=== PATIENT | male | born 1995 | race Caucasian/White ===

== ENCOUNTER 2016-12-04 15:38 | Emergency (ER) | payer BC, OTHER ==
[~2016-12-04] VITALS: Ht 172.7 cm; Wt 93.7 kg
[~2016-12-04 15:38] MED LIST: ASPI325T45 PO; CHOL100040 PO
[2016-12-04 15:45] VITALS: TEMP 36.8; Ht 172.7 cm; Wt 93.7 kg
[2016-12-04] MEDS ORDERED: SODIUM CHLORIDE 0.9% 1000ML 1,000 ML IV STA (15:52)
[2016-12-04] MEDS ORDERED: ONDANSETRON INJ 2 MG/ML 2 ML VIAL IV STA (15:52)
[2016-12-04] MEDS ORDERED: OPTIRAY 320 IV PRN (16:00)
[2016-12-04 16:28] LABS: BASO % 0.8 %; BASO ABS # 0.06 K/uL (0-0.2); COMPLETE YES; EOS % 3.6 %; HEMATOCRIT 48.3 % (42-52); LYMPH % 29.2 %; LYMPH ABS # 2.12 K/uL (1.2-3.4); MEAN CELL VOLUME 84.3 fL (80-100); MEAN CORPUSCULAR HEMOGLOBIN 30.2 pg (25-34); MEAN CORPUSCULAR HGB CONC 35.8 g/dl (32-36); MEAN PLATELET VOLUME 10.2 fL (7.4-10.4); NEUT % 58.4 %; PLATELET COUNT 235 K/uL (130-400); RED BLOOD COUNT 5.73 M/uL (4.7-6.1); WHITE BLOOD COUNT 7.25 K/uL (4.8-10.8)
[2016-12-04 16:30] LABS: URINE APPEARANCE CLEAR (CLEAR); URINE BILIRUBIN NEG (NEG); URINE COLOR YELLOW; URINE EPITHELIAL CELL AUTO 0-5 /lpf (0-5); URINE NITRITE NEG (NEG); UROBILINOGEN NEG (NEG); ZZUR CULT IF INDIC CLEAN CATCH NO
[2016-12-04 16:32] LABS: MANUAL MICROSCOPIC REQUIRED? NO; REVIEW REQ? NO
[2016-12-04] MEDS ORDERED: DICL-201 PO (16:32)
[2016-12-04] MEDS ORDERED: METH-307 PO (16:32)
[2016-12-04] MEDS ORDERED: OMEP20TA14 PO (16:32)
[2016-12-04 16:47] LABS: BUN/CREATININE RATIO 8.7 (10-20); CALCIUM 9.8 mg/dl (8.5-10.1); CREATININE 1.3 mg/dl (0.60-1.40); POTASSIUM 3.5 mmol/L (3.5-5.1)
--- NOTE | 2016-12-04 17:39 | DIAGNOSTIC IMAGING REPORT ---
CT OF THE ABDOMEN AND PELVIS WITH CONTRAST CLINICAL HISTORY: Right lower quadrant abdominal pain. COMPARISON STUDY: None. TECHNIQUE: Following IV administration of 94 mL of Optiray-320, axial images of the abdomen and pelvis were obtained from the lung bases to the proximal femurs. Images were reviewed in the axial, sagittal, and coronal planes. IV contrast was administered without complication. CT DOSE: 557.45 mGy.cm FINDINGS: The lung bases are clear. There is no pneumatosis, free air or portal venous gas. The liver, spleen, adrenal glands, kidneys and pancreas are normal. There is no biliary or pancreatic ductal dilatation. No hydronephrosis is present. The caliber and wall thickness of small and large bowel are normal. The appendix is normal. There is mild mesenteric infiltration. There is slight prominence of the vasculature of the small bowel which is likely within normal limits. There is no ascites or lymphadenopathy. Skeletal structures are unremarkable. IMPRESSION: 1. Normal appendix. 2. Mild mesenteric infiltration, a nonspecific finding of questionable significance. 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 No associated lymphadenopathy. Electronically signed by: Rod Benson M.D. 12/04/2016 5:37 PM Dictated Date/Time: 12/04/2016 5:33 PM
[2016-12-04 17:46] VITALS: BP 136/77; PULSE 90; O2SAT 100
--- NOTE | 2016-12-04 18:04 | EMERGENCY ROOM VISIT NOTE ---
History Report prepared by Jenna: Lin Anthony Under the Supervision of: Dr. Dane Pierce D.O. First contact with patient: 15:48 Chief Complaint: ABDOMINAL PAIN Stated Complaint: LOWER R SIDE ABD PAIN History of Present Illness The patient is a 21 year old male who presents to the Emergency Room with complaints of worsening right lower quadrant abdominal pain that began 2 days ago. Initially, he thought the pain was a stomach ache, but it has since localized and worsened in severity. He also complains of one episode of diarrhea. He has been eating and drinking normally. Denies nausea, vomiting, testicular symptoms, or other complaints. Source of History: patient Onset: 2 days ago Position: abdomen (RLQ) Timing: worsening Associated Symptoms: + diarrhea, No nausea, No vomiting Review of Systems See HPI for pertinent positives & negatives. A total of 10 systems reviewed and were otherwise negative. Past Medical & Surgical Medical Problems: (1) Cat bite (2) Need for prophylactic vaccination against rabies (3) Need for prophylactic vaccination against rabies (4) Pasteurella cellulitis due to cat bite Family History Hypertension Social History Smoking Status: Never Smoker Alcohol Use: occasionally Drug Use: none Marital Status: single Housing Status: lives with roommate Occupation Status: [employer] student Current/Historical Medications Scheduled PRN Diclofenac (Voltaren), 75 MG PO BID PRN for Pain Methocarbamol (Robaxin), 750 MG PO TID PRN for RELAX MUSCLE Omeprazole Magnesium (Prilosec Otc), 20 MG PO DAILY PRN for Pain Allergies Coded Allergies: No Known Allergies (Unverified , 08/13/16) Physical Exam Vital Signs Date Time Temp Pulse Resp B/P Pulse Ox O2 Delivery O2 Flow Rate FiO2 12/04/16 17:46 90 16 136/77 100 Room Air 12/04/16 16:54 86 18 110/60 99 Room Air 12/04/16 15:45 36.8 133 20 143/78 98 Room Air Physical Exam CONSTITUTIONAL/VITAL SIGNS: Reviewed / noted above. GENERAL: Non-toxic in appearance. INTEGUMENTARY: Warm, dry, and [place]. HEAD: Normocephalic. EYES: without scleral icterus or trauma. ENT/OROPHARYNX: clear and moist. LYMPHADENOPATHY/NECK: Is supple without lymphadenopathy or meningismus. RESPIRATORY: Lungs clear and equal. CARDIOVASCULAR: Regular rate and rhythm. GI/ABDOMEN: Soft, mild tenderness right lower quadrant. No organomegaly or pulsatile mass. No rebound or guarding. Normal bowel sounds. EXTREMITIES: Warm and well perfused. BACK: No CVA tenderness. NEUROLOGICAL: Intact without focal deficits. PSYCHIATRIC: normal affect. MUSCULOSKELETAL: Normally developed with good muscle tone. Medical Decision & Procedures ER Provider Diagnostic Interpretation: CT results as stated below per my review and radiologist interpretation: CT OF THE ABDOMEN AND PELVIS WITH CONTRAST CLINICAL HISTORY: Right lower quadrant abdominal pain. COMPARISON STUDY: None. TECHNIQUE: Following IV administration of 94 mL of Optiray-320, axial images of the abdomen and pelvis were obtained from the lung bases to the proximal femurs. Images were reviewed in the axial, sagittal, and coronal planes. IV contrast was administered without complication. CT DOSE: 557.45 mGy.cm FINDINGS: The lung bases are clear. There is no pneumatosis, free air or portal venous gas. The liver, spleen, adrenal glands, kidneys and pancreas are normal. There is no biliary or pancreatic ductal dilatation. No hydronephrosis is present. The caliber and wall thickness of small and large bowel are normal. The appendix is normal. There is mild mesenteric infiltration. There is slight prominence of the vasculature of the small bowel which is likely within normal limits. There is no ascites or lymphadenopathy. Skeletal structures are unremarkable. IMPRESSION: 1. Normal appendix. 2. Mild mesenteric infiltration, a nonspecific finding of questionable significance. 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 No associated lymphadenopathy. Electronically signed by: Rod Benson M.D. 12/04/2016 5:37 PM Dictated Date/Time: 12/04/2016 5:33 PM Laboratory Results 12/04/16 15:58 Red Blood Count 5.73, Mean Corpuscular Volume 84.3, Mean Corpuscular Hemoglobin 30.2, Mean Corpuscular Hemoglobin Concent 35.8, Mean Platelet Volume 10.2, Neutrophils (%) (Auto) 58.4, Lymphocytes (%) (Auto) 29.2, Monocytes (%) (Auto) 8.0, Eosinophils (%) (Auto) 3.6, Basophils (%) (Auto) 0.8, Neutrophils # (Auto) 4.23, Lymphocytes # (Auto) 2.12, Monocytes # (Auto) 0.58, Eosinophils # (Auto) 0.26, Basophils # (Auto) 0.06 12/04/16 15:58 Test 12/04/16 15:58 12/04/16 16:01 White Blood Count 7.25 K/uL (4.8-10.8) Red Blood Count 5.73 M/uL (4.7-6.1) Hemoglobin 17.3 g/dL (14.0-18.0) Hematocrit 48.3 % (42-52) Mean Corpuscular Volume 84.3 fL (80-100) Mean Corpuscular Hemoglobin 30.2 pg (25-34) Mean Corpuscular Hemoglobin Concent 35.8 g/dl (32-36) Platelet Count 235 K/uL (130-400) Mean Platelet Volume 10.2 fL (7.4-10.4) Neutrophils (%) (Auto) 58.4 % Lymphocytes (%) (Auto) 29.2 % Monocytes (%) (Auto) 8.0 % Eosinophils (%) (Auto) 3.6 % Basophils (%) (Auto) 0.8 % Neutrophils # (Auto) 4.23 K/uL (1.4-6.5) Lymphocytes # (Auto) 2.12 K/uL (1.2-3.4) Monocytes # (Auto) 0.58 K/uL (0.11-0.59) Eosinophils # (Auto) 0.26 K/uL (0-0.5) Basophils # (Auto) 0.06 K/uL (0-0.2) RDW Standard Deviation 35.1 fL (36.4-46.3) RDW Coefficient of Variation 11.5 % (11.5-14.5) Immature Granulocyte % (Auto) 0.0 % Immature Granulocyte # (Auto) 0.00 K/uL (0.00-0.02) Anion Gap 13.0 mmol/L (3-11) Est Creatinine Clear Calc Drug Dose 99.0 ml/min Estimated GFR () 89.8 Estimated GFR (Non- 77.5 BUN/Creatinine Ratio 8.7 (10-20) Calcium Level 9.8 mg/dl (8.5-10.1) Total Bilirubin 0.7 mg/dl (0.2-1) Direct Bilirubin 0.1 mg/dl (0-0.2) Aspartate Amino Transf (AST/SGOT) 21 U/L (15-37) Alanine Aminotransferase (ALT/SGPT) 35 U/L (12-78) Alkaline Phosphatase 82 U/L (45-117) Total Protein 8.3 gm/dl (6.4-8.2) Albumin 4.7 gm/dl (3.4-5.0) Lipase 82 U/L (73-393) Urine Color YELLOW Urine Appearance CLEAR (CLEAR) Urine pH 7.0 (4.5-7.5) Urine Specific Olga 1.020 (1.000-1.030) Urine Protein NEG (NEG) Urine Glucose (UA) NEG (NEG) Urine Ketones NEG (NEG) Urine Occult Blood NEG (NEG) Urine Nitrite NEG (NEG) Urine Bilirubin NEG (NEG) Urine Urobilinogen NEG (NEG) Urine Leukocyte Esterase NEG (NEG) Urine WBC (Auto) 0 /hpf (0-5) Urine RBC (Auto) 0-4 /hpf (0-4) Urine Hyaline Casts (Auto) 0 /lpf (0-5) Urine Epithelial Cells (Auto) 0-5 /lpf (0-5) Urine Bacteria (Auto) NEG (NEG) Laboratory results as stated above per my review. Medications Administered Medications (Trade) Dose Ordered Sig/Jennifer Route Start Time Stop Time Status Last Admin Dose Admin Sodium Chloride (Nss 1000ml) 1,000 ml @ 999 mls/hr Q1H1M STAT IV 12/04/16 15:52 12/04/16 16:54 DC 12/04/16 16:01 999 MLS/HR Ondansetron HCl (Zofran Inj) 4 mg NOW STAT IV 12/04/16 15:52 12/04/16 15:54 DC 12/04/16 16:01 4 MG ED Course 1548: The patient was evaluated in room C7. A complete history and physical examination was performed. 1552: Ordered Zofran Inj 4 mg IV, NSS 1000 ml @ 999 mls/hr IV. 1800: On reevaluation, the patient is resting comfortably. I discussed the results and findings with the patient. He verbalized agreement of the treatment plan. The patient was discharged home. Medical Decision Differential considered: pancreatitis, hepatitis, or acute cholecystitis, AAA, UTI, pyelonephritis, kidney stones, appendicitis, diverticulitis, shingles, bowel obstruction mesenteric ischemia, intussusception,hernia, testicular torsion. This is a 21-year-old male who presents to the ED with a chief complaint of right lower quadrant abdominal pain. The patient states that he has had the symptoms for about 2 days. It initially was generalized and then localized the right lower quadrant. His vital signs are stable. Physical exam reveals only mild tenderness in the right lower quadrant. No other abnormal findings. His CBC is normal. Complete metabolic panel is normal. Lipase is negative. Urine did not show infection. CT scan of the abdomen and pelvis did not show acute appendicitis. There is some mild mesenteric inflammatory changes. The patient was told the results of the tests. He is felt to be stable for discharge. He was treated with IV fluids and IV Zofran. Impression Primary Impression: RLQ abdominal pain Scribe Attestation The scribe's documentation has been prepared under my direction and personally reviewed by me in its entirety. I confirm that the note above accurately reflects all work, treatment, procedures, and medical decision making performed by me. Departure Information Dispostion Home / Self-Care Referrals BLAKE QURSEHI D.O. (PCP) Patient Instructions My [facility] Additional Instructions Follow-up with your doctor for further care and evaluation in 3-7 days if symptoms persist. Return to the emergency department for worsening or new symptoms or any concerns. You have been examined and treated today on an emergency basis only. This is not a substitute for, or an effort to provide, complete comprehensive medical care. It is impossible to recognize and treat all injuries or illnesses in a single emergency department visit. It is therefore important that you follow up closely with your doctor. Call as soon as possible for an appointment.
[2017-07-12] MEDS ORDERED: OMEP40CA41 PO (07:48)
[2017-07-12] MEDS ORDERED: VNTHFA/IN INH (07:48)
[2017-07-25] MEDS ORDERED: OXYC-57 PO (14:07)
== END 2016-12-04 18:14 | disposition home or self-care (01) ==
LOC: C.EDB 15:40 → C.EDC 18:14
DX: R10.31 Right lower quadrant pain (principal); Z86.19 Personal history of other infectious and parasitic diseases; Z79.899 Other long term (current) drug therapy; Z82.49 Family history of ischemic heart disease and other diseases of the circulatory system

== ENCOUNTER → 2017-07-25 | Day surgery (SDC) | payer OTHER ==
[2017-07-12 07:32] VITALS: BMI 29.0
[~2017-07-25] VITALS: Ht 175.3 cm; Wt 90.9 kg
[~2017-07-25] MED LIST changes: -ASPI325T45 PO; +ATROPINE SULFATE 0.1 MG/ML 5ML SYR IV PRN; +BUPIVACAINE 0.5 % 5 MG/1 ML MPF 30ML VIAL ONE; +CEFAZOLIN 2000 MG/60 ML D5W IV SCH; -CHOL100040 PO; +DEXAMETHASONE SOD INJ 4 MG/ML VIAL ONE; +EpHEDrine SULFATE 50MG/5ML SYR ONE; +EpHEDrine SULFATE INJ 50 MG/ML AMP IV PRN; +FENTANYL CITRATE INJ 50 MCG/1 ML 2 ML VIAL ONE; +FLUMAZENIL 0.1 MG/1 ML 10 ML VIAL IV PRN; +GLYCOPYRROLATE INJ 0.2 MG/ML VIAL ONE; +HYDROmorphone INJ 2 MG/ML SYR/VIAL IV PRN; +LABETALOL HCL IV 5 MG/ML 20ML IV PRN; +LACTATED RINGER'S 1000ML 1,000 ML IV SCH; +LIDOCAINE HCL 1% 20 ML VIAL ONE; +MEPERIDINE HCL 25 MG/ML CARP IV PRN; +MIDAZOLAM HCL 1 MG/ML 2ML VIAL ONE; +NALOXONE HCL 0.4 MG/1 ML VIAL/CARP IV PRN; +NEOSTIGMINE METHYLSULFATE 5 MG/5 ML SYR ONE; +OMEP40CA41 PO; +ONDANSETRON INJ 2 MG/ML 2 ML VIAL IV PRN; +ONDANSETRON INJ 2 MG/ML 2 ML VIAL ONE; +OXYC-57 PO; +PHENYLEPHRINE 100MCG/ML 5ML SYR IV PRN; +PROPOFOL IV EMULSION 10 MG/ML 20 ML VIAL IV ONE; +ROCURONIUM BROMIDE 10 MG/ML 5 ML VIAL IV ONE; +VNTHFA/IN INH
[2017-07-25 10:29] VITALS: BP 135/79; PULSE 76; TEMP 37; O2SAT 98; Ht 175.3 cm; Wt 90.9 kg
[2017-07-25] MEDS: LACTATED RINGER'S 1000ML 1,000 ML IV SCH ×2 (11:01→11:02)
--- NOTE | 2017-07-25 11:59 | History & Physical Bridge Note ---
H&P Re-Evaluation Bridge Note: I have examined the patient, reviewed the History & Physical and in the interval since the performance of the History & Physical I have noted the following changes of clinical significance: No changes noted
--- NOTE | 2017-07-25 14:06 | [facility] Operative Report ---
Operative Report Operative Date Jul 25, 2017. Pre-Operative Diagnosis Biliary Dyskinesia & Bilary Colic Post-Operative Diagnosis Biliary Dyskinesia & Bilary Colic Procedure(s) Performed Laparoscopic Cholecystectomy Surgeon Harleen Francisco MD Ballet Dancer Surgeon(s) MARLEY Osuna Estimated Blood Loss 5mL Findings Normal appearing gallbladder and liver Fluids 1200mL Specimens A: gallbladder & contents to pathology Drains None Anesthesia GETA, 40ml of Local anesthetic (20ml 0.5% Marcaine + 20ml 1% Lidocaine mix) Complication(s) None Disposition Recovery Room / PACU Indications Shelton Hamlin is a 22 year old man with biliary dyskinesia and biliary colic. Indications, risks, benefits and potential complications of laparoscopic, possible open cholecystectomy were discussed at length with the patient pre operatively. All questions answered to apparent satisfaction. Patient elected to proceed with surgery and freely signed the consent form. Description of Procedure Patient was brought to the operating room and identified as Shelton Hamlin, 89. He was placed on the operating table in supine position. Anesthesia was induced and the patient was intubated without difficulty. The abdomen was clipped, prepped, and draped in the usual sterile fashion. A time out was held, verifying correct patient, procedure, site, equipment available, pre operative antibiotics, allergies, and personnel. After injection of local anesthetic, an incision was made at the umbilicus and carried down through subcutaneous tissues. Fascia was identified and two Walter clamps were placed for upward traction. Fascia was incised, and peritoneum was located. Two hemostats were placed for upward traction, and the peritoneum was carefully incised using Metzenbaum scissors, taking care not to injure any underlying structures. A 12mm balloon port was inserted, and insufflation was established. A 10mm endoscope was inserted, and the abdomen explored; the liver and gallbladder were both observed to appear normal. Next, a 5mm port was placed in the sub-xiphoid location under direct vision. Two more 5mm ports were placed in the left abdomen, approximately 4cm below the costal margin. Patient was positioned in reverse Trendelenburg with left side down to open the gallbladder fossa. The dome of the gallbladder was grasped and retracted cranially. The lateral edge of the gallbladder was grasped and retracted laterally. Omental adhesions were gently taken down using [place] graspers. The cystic duct was then dissected out using [place] graspers. The cystic artery was found medially to the cystic duct; this was also carefully dissected out until the view of safety was clearly visible. The cystic artery and duct were the only structures observed to be leading into the gallbladder, with liver visible between and behind the two structures. The cystic duct was clipped with 5mm surgical clips and cut. The cystic artery was then clipped and cut. The gallbladder was then dissected off the hilar plate using electrocautery. Once completely liberated from the gallbladder fossa, the 10mm endoscope was switched for a 5mm endoscope, and a 10mm Endocatch bag was placed through the umbilical port. The gallbladder was placed in the Endocatch bag, and removed from the abdomen to be passed off the field to be taken to pathology. The gallbladder fossa was inspected. hemostasis was achieved with electrocautery. Once verified to be hemostatic, the gallbladder fossa was irrigated with sterile saline, and evacuated of all excess fluid. The 5mm ports were removed under direct vision. Sponge and instrument counts were verified to be correct x 2 by the nurse in charge. Fascia was closed at the umbilicus using 0 Vicryl in interrupted fashion. Skin was closed with Monocryl, and Dermabond applied. Patient was then awakened from anesthesia, extubated without difficulty, and was taken to PACU, having suffered no untoward events. I attest to the content of the Intraoperative Record and any orders documented therein. Any exceptions are noted below.
--- NOTE | 2017-07-25 14:15 | Discharge Instructions ---
Discharge Instructions Date of Service Jul 25, 2017. Visit Reason for Visit: Biliary Dyskinesia Discharge Discharge Diagnosis / Problem: Biliary dyskinesia, biliary colic Discharge Goals Goal(s): Decrease discomfort, Improve function Activity Recommendations Activity Limitations: as noted below Lifting Limitations: no more than 10 pounds Exercise/Sports Limitations: rest today, until after follow-up appointment May Resume Sexual Activity: when tolerated Shower/Bathe: no limitations Anesthesia . Post Anesthesia Instructions: If you have had General Anesthesia or IV Sedation: * Do not drive today. * Resume driving when surgeon permits. * Do not make important decisions or sign legal documents today. * Call surgeon for: 1. Temperature elevations greater than 101 degrees F. 2. Uncontrollable pain. 3. Excessive bleeding. 4. Persistent nausea and vomiting. 5. Medication intolerance (nausea, vomiting or rash). * For nausea and vomiting use only clear liquids such as: tea, soda, bouillon until nausea subsides, then gradually increase diet as tolerated. * If you have any concerns or questions, call your surgeon's office. If physician is unavailable and it is an emergency, call 911 or go to the nearest emergency room. . Instructions / Follow-Up Instructions / Follow-Up -You have Dermabond (surgical glue) over your incisions. You may shower, just wash gently over the incisions with warm / soapy water. Do not scrub. Do not soak, as in a bathtub or swimming pool. The surgical glue will fall off on its own over time. You have sutures in place which will dissolve over time - they will not need to be removed. -Please follow up with Dr. Francisco in clinic in 1 to 2 weeks following operation. You may call [phone] to make this appointment or if you have any questions. -Do not lift anything greater than 10 lbs until you are evaluated at your outpatient appointment. -You may take Percocet, 1 to 2 tabs every 4 to 6 hours as needed for pain. Alternatively, you may take Tylenol or Ibuprofen for pain - use as directed. Do not take Tylenol at the same time as the Percocet (Percocet contains Tylenol) . Do not drive or operate heavy machinery while taking the Percocet. Do not drive until you are no longer taking Percocet and are completely pain free. -You have no diet restrictions following your surgery. You may feel nauseated or have no appetite on the day of surgery, so start slowly with liquids only, advance as tolerated. -Call the clinic office with any questions or concerns. Diet Recommendations Recommended Home Diet: no limitations, resume previous diet Procedures Procedures Performed: Laparoscopic Cholecystectomy Pending Studies Studies pending at discharge: yes List of pending studies: Gallbladder pathology - will discuss results at follow up appointment Medical Emergencies . Who to Call and When: Medical Emergencies: If at any time you feel your situation is an emergency, please call 911 immediately. . Non-Emergent Contact Non-Emergency issues call your: Primary Care Provider, Surgeon Call Non-Emergent contact if: temperature is above 101, your pain is worsening , wound has increased drainage, wound has increased redness, wound has increased pain . . "Provider Documentation" section prepared by Harleen Francisco. . [place] Drug Monitoring Program Search Results: patient reviewed within database, no issues identified
[2017-07-25] MEDS: FENTANYL CITRATE INJ 50 MCG/1 ML 2 ML VIAL IV PRN ×4 (14:20→14:39)
--- NOTE | 2017-07-25 14:25 | Anesthesiology Progress Note ---
Anesthesia Post Op Note Date & Time Jul 25, 2017 at 14:25 Vital Signs Pain Intensity: 0 Vital Signs Past 12 Hours Date Time Temp Pulse Resp B/P (MAP) Pulse Ox O2 Delivery O2 Flow Rate FiO2 07/25/17 14:07 79 12 07/25/17 14:07 79 12 100 07/25/17 14:06 142/78 07/25/17 14:02 83 11 100 07/25/17 14:02 85 11 07/25/17 14:01 159/78 07/25/17 13:57 99 13 07/25/17 13:57 98 13 100 07/25/17 13:56 160/84 07/25/17 13:53 167/94 07/25/17 13:52 94 16 07/25/17 13:52 36.1 101 12 167/94 (114) 100 Mask 10 07/25/17 13:52 93 16 100 07/25/17 10:29 37 76 18 135/79 (97) 98 Room Air Notes Mental Status: alert / awake / arousable, participated in evaluation Pt Amnestic to Procedure: Yes Nausea / Vomiting: adequately controlled Pain: adequately controlled Airway Patency, RR, SpO2: stable & adequate BP & HR: stable & adequate Hydration State: stable & adequate Anesthetic Complications: no major complications apparent
[2017-07-25 15:05] VITALS: BP 132/62; PULSE 80; TEMP 36.8; O2SAT 94
[2017-07-25 15:35] VITALS: BP 124/66; PULSE 92; O2SAT 96
[2017-07-25 16:05] VITALS: BP 127/64; PULSE 83; TEMP 36.6; O2SAT 98
== END | disposition home or self-care (01) ==
LOC: C.ACU 10:15
PROVIDERS: ATTEND Student in an Organized Health Care Education/Training Program
DX: K82.8 Other specified diseases of gallbladder (principal); K80.50 Calculus of bile duct without cholangitis or cholecystitis without obstruction; J45.909 Unspecified asthma, uncomplicated; K44.9 Diaphragmatic hernia without obstruction or gangrene; K21.9 Gastro-esophageal reflux disease without esophagitis; F32.9 Major depressive disorder, single episode, unspecified; Z82.49 Family history of ischemic heart disease and other diseases of the circulatory system